=== PATIENT | female | born 1995 | race African-American/Black ===

== ENCOUNTER 2019-11-30 04:47 | Emergency (ER) | payer SELFPAY ==
[~2019-11-30] VITALS: Ht 165.1 cm; Wt 79.0 kg
[2019-11-30 07:10] LABS: CLARITY URINE CLEAR (CLEAR); COLOR URINE YELLOW (YELLOW); KETONES URINE NEGATIVE (NEGATIVE); LEUKOCYTE ESTERASE URINE NEGATIVE (NEGATIVE); NITRITE URINE NEGATIVE (NEGATIVE); OCCULT BLOOD URINE NEGATIVE (NEGATIVE); PH URINE 6.5 (4.5-8.0); PROTEIN URINE NEGATIVE (NEGATIVE); SPECIFIC GRAVITY URINE 1.006 (1.005-1.030); UROBILINOGEN URINE 0.2 E.U./dL (0.2-1.0)
[2019-11-30 08:17] LABS: BASOPHILS % 0.3 % (0.0-2.0); HEMATOCRIT. 34.6 % (36.0-48.0); HEMOGLOBIN. 11.2 g/dL (12.0-16.0); LYMPHOCYTES % 24.4 % (20.0-50.0); MEAN CORPUSCULAR VOLUME 74.6 fL (81.0-99.0); MEAN PLATELET VOLUME 9.4 fl (7.4-10.4); MONOCYTES % 7.1 % (2.0-8.0); NEUTROPHILS % 67.2 % (40.0-76.0); PLATELET 250 x1000/uL (130-400); RED BLOOD CELL COUNT 4.64 mill/uL (4.2-5.4); RED CELL DISTRIBUTION WIDTH 14.8 % (11.6-14.6)
[2019-11-30 08:22] LABS: CHLORIDE 109 mEq/L (98-107)
[2019-11-30 08:25] LABS: PROTHROMBIN TIME 10.1 sec (9.6-11.0)
[2019-11-30] MEDS ORDERED: MAGNESIUM/ALUMINUM HYDROXIDE/SIMETHICONE 30ML UDC PO STA (08:34)
[2019-11-30] MEDS ORDERED: VISCOUS LIDOCAINE 2% 15 ML UDC PO STA (08:34)
[2019-11-30 09:00] VITALS: BP 129/75
== END 2019-11-30 09:05 | disposition home or self-care (01) ==
LOC: ER 05:09
DX: R10.9 Unspecified abdominal pain (principal); R07.89 Other chest pain; R06.02 Shortness of breath; J45.909 Unspecified asthma, uncomplicated
CPT/HCPCS: 36415; 71045; 76700; 80053; 81003; 81025; 83880; 84484; 85025; 93005; 99285

== ENCOUNTER 2020-01-11 10:11 | Emergency (ER) | payer SELFPAY ==
[~2020-01-11] VITALS: Ht 162.6 cm; Wt 79.0 kg
[2020-01-11] MEDS ORDERED: VISCOUS LIDOCAINE 2% 15 ML UDC PO STA (10:49)
[2020-01-11] MEDS ORDERED: KETOROLAC 30MG/ML VIAL IV STA (10:49)
[2020-01-11] MEDS ORDERED: MAGNESIUM/ALUMINUM HYDROXIDE/SIMETHICONE 30ML UDC PO STA (10:49)
[2020-01-11 11:10] LABS: BASOPHILS % 0.6 % (0.0-2.0); EOSINOPHILS % 1.4 % (0.0-5.0); HEMATOCRIT. 34.2 % (36.0-48.0); HEMOGLOBIN. 10.9 g/dL (12.0-16.0); MEAN CORPUSCULAR HEMOGLOBIN 23.9 pg (28.0-32.0); MEAN CORPUSCULAR VOLUME 75.1 fL (81.0-99.0); MEAN PLATELET VOLUME 8.7 fl (7.4-10.4); PLATELET 227 x1000/uL (130-400); RED BLOOD CELL COUNT 4.56 mill/uL (4.2-5.4); RED CELL DISTRIBUTION WIDTH 14.8 % (11.6-14.6)
[2020-01-11 11:17] LABS: CHLORIDE 107 mEq/L (98-107)
[2020-01-11 11:21] LABS: PROTHROMBIN TIME 10.8 sec (9.6-11.0)
[2020-01-11 11:37] LABS: HCG SCREEN NEGATIVE
[2020-01-11 12:14] LABS: CLARITY URINE CLEAR (CLEAR); COLOR URINE YELLOW (YELLOW); KETONES URINE NEGATIVE (NEGATIVE); LEUKOCYTE ESTERASE URINE NEGATIVE (NEGATIVE); NITRITE URINE NEGATIVE (NEGATIVE); OCCULT BLOOD URINE NEGATIVE (NEGATIVE); PH URINE 8.5 (4.5-8.0); PROTEIN URINE NEGATIVE (NEGATIVE); SPECIFIC GRAVITY URINE 1.013 (1.005-1.030)
[2020-01-11 12:30] VITALS: BP 117/89
== END 2020-01-11 13:55 | disposition home or self-care (01) ==
LOC: ER 10:32
DX: R07.89 Other chest pain (principal); R06.6 Hiccough; J45.909 Unspecified asthma, uncomplicated
CPT/HCPCS: 36415; 71045; 80053; 81003; 81025; 83690; 84484; 84703; 85025; 85610; 93005; 96374; 99284; J1885

== ENCOUNTER 2020-01-24 15:11 | Emergency (ER) | payer SELFPAY ==
[~2020-01-24] VITALS: Ht 160 cm; Wt 84.0 kg
[2020-01-24 17:13] VITALS: BP 119/76
== END 2020-01-24 17:14 | disposition home or self-care (01) ==
LOC: ER 15:11
DX: K21.9 Gastro-esophageal reflux disease without esophagitis (principal); J45.909 Unspecified asthma, uncomplicated; Z76.0 Encounter for issue of repeat prescription; Z87.442 Personal history of urinary calculi
CPT/HCPCS: 99282

== ENCOUNTER 2020-02-04 03:43 | Emergency (ER) | payer SELFPAY ==
[~2020-02-04] VITALS: Ht 165.1 cm; Wt 82.0 kg
[2020-02-04] MEDS ORDERED: KETOROLAC 60MG/2ML VIAL IM ONE (04:45)
[2020-02-04] MEDS ORDERED: HYDROCODONE/ACETAMINOPHEN 10/325MG TABLET PO ONE (04:45)
[2020-02-04] MEDS ORDERED: VISCOUS LIDOCAINE 2% 15 ML UDC MM STA (04:53)
[2020-02-04] MEDS ORDERED: MAGNESIUM/ALUMINUM HYDROXIDE/SIMETHICONE 30ML UDC PO ONE (05:00)
[2020-02-04 06:57] VITALS: BP 130/78
== END 2020-02-04 06:58 | disposition home or self-care (01) ==
LOC: ER 03:43
DX: K80.80 Other cholelithiasis without obstruction (principal); R10.9 Unspecified abdominal pain; J45.909 Unspecified asthma, uncomplicated
CPT/HCPCS: 81025; 93005; 96372; 99284; J1885